=== PATIENT | female | born 1945 | race Caucasian/White ===

== ENCOUNTER 2016-03-18 04:54 | Inpatient (IN) | payer BC, OTHER ==
--- NOTE | 2016-03-18 05:14 | PDOC ---
History of Present Illness - General History Source: Patient - History of Present Illness Initial Comments: 03/18/16 05:30 The patient is a 70 year old female with a significant past medical history of HTN and depression who presents to the Emergency Department with complaints of post surgery pain. 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 She reports experiencing severe abdominal pain, nausea, and vomiting all night. She also reports cold sweats. She denies chest pain, SOB, cough, diarrhea, headache, dizziness. (-)sick contact PSH:right total knee replacement, spleen removal surgery SH:smokes Marijuana occasionally PCP: Dr. Catracho Nichole <Yuliya Shepard - Last Filed: 03/18/16 05:29> <Laureen Jean-Baptiste - Last Filed: 03/19/16 06:19> - General Stated Complaint: POST SURGERY PAIN Time Seen by Provider: 03/18/16 05:14 Past History <Yuliya Shepard - Last Filed: 03/18/16 05:29> - Past Medical History Anemia: No Asthma: No Cancer: No Cardiac Disorders: No CVA: No COPD: No CHF: No Dementia: No Diabetes: No GI Disorders: No Disorders: No HTN: Yes Hypercholesterolemia: No Liver Disease: No Psychiatric Problems: Yes (depression ) Seizures: Yes (no medication) Thyroid Disease: No Lung CA: Yes - Surgical History Abdominal Surgery: No Appendectomy: No Cardiac Surgery: No Cholecystectomy: No Lung Surgery: No Neurologic Surgery: No Orthopedic Surgery: Yes (LEFT TOTAL KNEE REPLACEMENT 2013) - Psycho/Social/Smoking Cessation Hx Anxiety: No Suicidal Ideation: No Smoking Status: No Smoking History: Never smoked (smokes marijuana (2 JOINTS/DAY)) Years of Tobacco Use: 0 Have you smoked in the past 12 months: No Number of Cigarettes Smoked Daily: 0 'Breaking Loose' booklet given: 08/31/13 Hx Alcohol Use: No Drug/Substance Use Hx: Yes (SMOKES 2 JOINTS/DAY) Substance Use Type: Marijuana Hx Substance Use Treatment: No <Laureen Jean-Baptiste - Last Filed: 03/19/16 06:19> - Past Medical History Allergies/Adverse Reactions: Allergies Allergy/AdvReac Type Severity Reaction Status Date / Time No Known Allergies Allergy Verified 03/18/16 05:36 Home Medications: Ambulatory Orders NK [No Known Home Medication] 03/18/16 Review of Systems - Review of Systems Able to Perform ROS?: Yes Comments:: 03/18/16 05:30 GENERAL/CONSTITUTIONAL: Yes: cold sweats No: fever, weakness, loss of appetite. HEAD, EYES, EARS, NOSE AND THROAT: No: change in vision, ear pain, discharge, sore throat, throat swelling. CARDIOVASCULAR: No: chest pain, lightheadedness, palpitations, syncope RESPIRATORY: No: cough, shortness of breath, wheezing, hemoptysis, stridor. GASTROINTESTINAL: Yes: nausea, vomiting, abdominal pain No: diarrhea, rectal bleeding, constipation. GENITOURINARY: No: dysuria, hematuria, frequency, urgency, flank pain. MUSCULOSKELETAL: No: back pain, neck pain, joint pain, muscle swelling or pain SKIN AND BREASTS: No: lesions, pallor, rash or easy bruising. NEUROLOGIC: No: headache, vertigo, paresthesias, weakness ENDOCRINE: No: unexplained weight gain or loss HEMATOLOGIC/LYMPHATIC: No: anemia, easy bleeding, swelling nodes All Other Systems: Reviewed and Negative <Yuliya Shepard - Last Filed: 03/18/16 05:29> *Physical Exam - Physical Exam Comments: 03/18/16 05:36 GENERAL: The patient is in no acute distress. HEAD: Normal with no signs of trauma. EYES: PERRLA, EOMI, sclera anicteric, conjunctiva clear. ENT: Ears normal, nares patent, oropharynx clear without exudates. Moist mucous membranes. NECK: Normal range of motion, supple without lymphadenopathy, JVD, or masses. LUNGS: Breath sounds equal, clear to auscultation bilaterally. No wheezes, and no crackles. HEART:Regular rate and rhythm, normal S1 and S2 without murmur, rub or gallop. ABDOMEN: +mid abdominal surgical scar. Soft, nontender, normoactive bowel sounds. No guarding, no rebound. EXTREMITIES: Normal range of motion, no edema. No clubbing or cyanosis. No erythema, or tenderness. NEUROLOGICAL: Cranial nerves II through XII grossly intact. Normal speech. No focal neurological deficits. MUSCULOSKELETAL: Back non-tender to palpation, no CVA tenderness SKIN: Warm, Dry, normal turgor, no rashes. <Yuliya Shepard - Last Filed: 03/18/16 05:29> ED Treatment Course - LABORATORY CBC & Chemistry Diagram: 03/18/16 05:30 03/18/16 05:30 <Laureen Jean-Baptiste - Last Filed: 03/19/16 06:19> Medical Decision Making - Medical Decision Making 03/18/16 06:53 Pt comes with intractable vomiting all night. She had a splenectomy on Jan 18, 2016. Since that time, she healed up and she has had no issues. She has no other PMHx. She is coughing, and states that she doesn;t smoke cigarettes, only pot. SHe has no dysuria, flank pain, fever. She only has vomiting. No history of food poisoning. SHe has a WBC count of 15 with a right shift. SHe may have a viral gastroenteritis, or she may have an acute obstruction. CT pending. SHe will be signed out to the day ER doctor, who will admit her to the hospital. <Laureen Jean-Baptiste - Last Filed: 03/19/16 06:19> *DC/Admit/Observation/Transfer - Attestations Scribe Attestion: 03/18/16 05:37 Documentation prepared by Yuliya Shepard, acting as medical assisting program director for Laureen Jean-Baptiste MD. <Yuliya Shepard - Last Filed: 03/18/16 05:29> <Laureen Jean-Baptiste - Last Filed: 03/19/16 06:19> Diagnosis at time of Disposition: Small bowel obstruction - Discharge Dispostion Condition at time of disposition: Stable - Referrals
[2016-03-18] MEDS ORDERED: ONDANSETRON 4 MG/2 ML VIAL IVPB ONE (05:26)
[2016-03-18] MEDS ORDERED: SODIUM CHLORIDE 0.9% 500 ML INFUS.BAG IV ONE (05:26)
[2016-03-18] MEDS ORDERED: FAMOTIDINE 20 MG/50 ML IVPB 50 ML IVPB ONE ×2 (05:26→05:31)
[2016-03-18] MEDS ORDERED: ONDANSETRON 4 MG/2 ML VIAL ONE (05:31)
[2016-03-18 05:40] VITALS: BMI 21.9
[2016-03-18 05:41] LABS: MCH 27.3 pg (25.7-33.7); MCHC 31.8 g/dl (32.0-36.0); MEAN CELL VOLUME 85.7 fl (80-96); PLATELET COUNT 528 K/MM3 (134-434); RDW 17.2 % (11.6-15.6); WHITE BLOOD COUNT 15.1 K/mm3 (4.0-10.0)
[2016-03-18 06:10] LABS: ALBUMIN 4.5 g/dl (3.4-5.0); AMYLASE 66 U/L (25-115); ANION GAP 12 (8-16); BILIRUBIN,TOTAL 0.7 mg/dL (0.2-1.0); CALCIUM 10.4 mg/dL (8.5-10.1); CO2 24 mmol/L (21-32); CREATININE 0.9 mg/dL (0.55-1.02); GLUCOSE,RANDOM 172 mg/dL (74-106); SGPT/ALT 22 U/L (12-78); TOT PROT 8.3 g/dl (6.4-8.2)
[2016-03-18 06:11] LABS: ALK PHOS 85 U/L (45-117)
[2016-03-18 06:15] LABS: SGOT/AST 31 U/L (15-37)
--- NOTE | 2016-03-18 07:13 | PDOC ---
*Physical Exam - Vital Signs Last Vital Signs Temp Pulse Resp BP Pulse Ox 97.6 F 96 H 18 125/90 100 03/18/16 05:37 03/18/16 05:37 03/18/16 05:37 03/18/16 05:37 03/18/16 05:37 ED Treatment Course - LABORATORY CBC & Chemistry Diagram: 03/18/16 05:30 03/18/16 05:30 - ADDITIONAL ORDERS Additional order review: Laboratory Results 03/18/16 05:30 Sodium 138 Potassium 4.7 Chloride 102 Carbon Dioxide 24 Anion Gap 12 BUN 16 D Creatinine 0.9 D Creat Clearance w eGFR > 60 Random Glucose 172 H D Calcium 10.4 H Total Bilirubin 0.7 AST 31 ALT 22 D Alkaline Phosphatase 85 D Total Protein 8.3 H D Albumin 4.5 D Total Amylase 66 Lipase 127 03/18/16 05:30 RBC 5.37 H D MCV 85.7 MCHC 31.8 L RDW 17.2 H D MPV 8.0 D Neutrophils % Y Lymphocytes % Y - Medications Given in the ED: ED Medications Discontinued Medications Generic Name Dose Route Start Last Admin Trade Name Freq PRN Reason Stop Dose Admin Famotidine/Sodium Chloride 50 mls @ 100 mls/hr 03/18/16 05:26 03/18/16 05:35 Pepcid 20 Mg Premixed Ivpb - IVPB 03/18/16 05:55 100 mls/hr ONCE ONE Administration Ondansetron HCl 4 mg 03/18/16 05:26 03/18/16 05:35 Zofran Injection IVPB 03/18/16 05:27 4 mg ONCE ONE Administration Sodium Chloride 1,000 ml 03/18/16 05:26 03/18/16 05:35 Normal Saline - IV 03/18/16 05:27 1,000 ml ONCE ONE Administration Medical Decision Making - Medical Decision Making 03/18/16 07:12 The pt was signed out to me from dr. Jean-Baptiste at 7am. 70y F hx of splenic rupture s/p splenectomy in december, presents with vomiting today. The patient endorses some abd pain and vomiting w/o fever/chills, diarrhea. The pts labs were obtained that revealed a leukocytosis, but hbg also elevated, ?hemoconcentration. The patient is awaiting CT abdomen with contrast later today. 03/18/16 10:[address] c/w high grade SBO will admit the pt with surgical consultation NPO for now the pt appears well, abd soft nontender. no vomting since arrival will hold NG tube unless pt is vomiting prior fluid collections hasve resolved. 03/18/16 10:59 The case was discussed with Dr. De La Rosa agreed with admission for further mangaement Stable for admission to [facility] Case discussed in detail with admitting physician including history, physical exam and ancillary studies. Admitting physician has assumed care for the patient, will follow all pending diagnostics and will complete the evaluation and treatment. *DC/Admit/Observation/Transfer Diagnosis at time of Disposition: Small bowel obstruction - Discharge Dispostion Condition at time of disposition: Stable Admit: Yes - Referrals Referrals: Catracho Nichole MD [Primary Care Provider] - - Patient Instructions - Post Discharge Activity
[2016-03-18 07:42] LABS: PLATELET COMMENT2 NO CLOTTING DETECTED; PLATELET COMMENT3 FEW LARGE PLTS; PLATELET ESTIMATE INCREASED (NORMAL)
[2016-03-18] MEDS ORDERED: SODIUM CHLORIDE 1,000 ML IV SCH (11:15)
--- NOTE | 2016-03-18 11:26 | HP ---
PCP: Catracho Nichole CHIEF COMPLAINT: Abdominal pain HISTORY OF PRESENT ILLNESS: This is a 70-year-old woman who comes to the ER today complaining of abdominal pain. She has been having intermittent abdominal pain for about a week. Pain has been more severe for the last 2 days. She ate Lebanese food on the night of 03/16 and afterwards she began vomiting and the pain worsened. She has a history of splenic artery aneurysm bleed and underwent embolization by IR on 01/17/16. She then had an exploratory laparotomy and was found to have a ruptured spleen and underwent splenectomy on 01/18/16. Her post- op course was complicated by pneumonia, ileus, DIRK and demand ischemia. She was discharged on 02/04/16. She says she saw Dr. Leal last week. She denies fever, chills, hematemesis, melena, rectal bleeding. Her last bowel movement was yesterday. PAST MEDICAL HISTORY Depression Seizures Hypotension PAST SURGICAL HISTORY Bilateral total knee replacements Tubal ligation Splenectomy Allergies No Known Allergies Allergy (Verified 03/18/16 05:36) HOME MEDICATIONS 3 Medication Instructions Recorded NK [No Known Home Medication] 03/18/16 Social History: Smoking: Never smoked Alcohol: None Drugs: Marijuana Recent Travel: No Family History: Non-contributory REVIEW OF SYSTEMS CONSTITUTIONAL: Absent: fever, chills, diaphoresis, generalized weakness, malaise, loss of appetite, weight change HEENT: Absent: rhinorrhea, nasal congestion, throat pain, throat swelling, difficulty swallowing, mouth swelling, ear pain, eye pain, visual changes CARDIOVASCULAR: Absent: chest pain, syncope, palpitations, lightheadedness, peripheral edema RESPIRATORY: Absent: cough, shortness of breath, dyspnea with exertion, orthopnea, wheezing, stridor, hemoptysis GASTROINTESTINAL: Present: abdominal pain, abdominal distension, nausea, vomiting. Absent: diarrhea, constipation, melena, hematochezia GENITOURINARY: Absent: dysuria, frequency, urgency, hesitancy, hematuria, flank pain MUSCULOSKELETAL: Absent: myalgia, arthralgia, joint swelling, back pain, neck pain SKIN: Absent: rash, itching, pallor HEMATOLOGIC/IMMUNOLOGIC: Absent: easy bleeding, easy bruising, lymphadenopathy, frequent infections ENDOCRINE: Absent: unexplained weight gain, unexplained weight loss, heat intolerance, cold intolerance NEUROLOGIC: Absent: headache, focal weakness, paresthesias, dizziness, unsteady gait, seizure, mental status changes, bladder or bowel incontinence PSYCHIATRIC: Absent: anxiety, depression, suicidal or homicidal ideation, hallucinations. PHYSICAL EXAMINATION Vital Signs Period Temp Pulse Resp BP Sys/Truong Pulse Ox Last 24 Hr 97.6 F 96 18 125/90 100 GENERAL: Awake, alert, and fully oriented, in no acute distress. HEAD: Normal with no signs of trauma. EYES: Pupils equal, round and reactive to light, extraocular movements intact, sclerae anicteric, conjunctivae clear. EARS, NOSE, THROAT: Ears normal, nares patent, oropharynx clear without exudates. Moist mucous membranes. NECK: Normal range of motion, supple without lymphadenopathy, JVD, or masses. LUNGS: Breath sounds equal, clear to auscultation bilaterally. No wheezes, and no crackles. No accessory muscle use. HEART: Regular rate and rhythm, normal S1 and S2 without murmur, rub or gallop. ABDOMEN: Soft, mild diffuse tenderness, mild distension, hypoactive bowel sounds , no guarding, no rebound, no masses. No hepatomegaly. MUSCULOSKELETAL: Normal range of motion at all joints. No bony deformities or tenderness. No CVA tenderness. UPPER EXTREMITIES: 2+ pulses, warm, well-perfused. No cyanosis. No clubbing. Cap refill <2 seconds. No peripheral edema. LOWER EXTREMITIES: 2+ pulses, warm, well-perfused. No calf tenderness. No peripheral edema. NEUROLOGICAL: Cranial nerves II-XII intact. Normal speech. Gait not observed. PSYCHIATRIC: Cooperative. Good eye contact. Appropriate mood and affect. SKIN: Warm, dry, normal turgor, no rashes or lesions noted. Laboratory Results - last 24 hr 03/18/16 03/18/16 05:30 05:30 WBC 15.1 H D RBC 5.37 H D Hgb 14.6 D Hct 46.0 H D MCV 85.7 MCHC 31.8 L RDW 17.2 H D Plt Count 528 H D MPV 8.0 D Neutrophils % 65.0 Lymphocytes % 22.0 D Monocytes % 8.0 Band Neutrophils 5.0 D Platelet Estimate Increased Platelet Comment No clotting detected Sodium 138 Potassium 4.7 Chloride 102 Carbon Dioxide 24 Anion Gap 12 BUN 16 D Creatinine 0.9 D Creat Clearance w eGFR > 60 Random Glucose 172 H D Calcium 10.4 H Total Bilirubin 0.7 AST 31 ALT 22 D Alkaline Phosphatase 85 D Total Protein 8.3 H D Albumin 4.5 D Total Amylase 66 Lipase 127 Abdomen flat/upright: Distended small bowel with air-fluid levels. CT abdomen/pelvis: High grade, partial SBO. ASSESSMENT/PLAN: This is a 70-year-old woman with a history of depression, seizures, ruptured spleen and splenectomy who presented to the ER today with abdominal pain x 1 week, worse and associated with nausea and vomiting for the last 2 days. She was found to have WBC 15.1, platelets 528. Abdominal x-rays and CT are consistent with partial SBO. She is being admitted now for treatment of an emergent condition. 1. Partial small bowel obstruction - Currently no nausea or vomiting - Morphine as needed for pain - Zofran as needed for nausea - IV fluid - Surgery consult 2. Leukocytosis - Likely reactive - Follow WBC, temp 3. Thrombocytosis - Secondary to splenectomy Problem List - Problem (1) Partial small bowel obstruction Code(s): K56.69 - OTHER INTESTINAL OBSTRUCTION Visit type - Emergency Visit Emergency Visit: Yes ED Registration Date: 03/18/16 Care time: The patient presented to the Emergency Department on the above date and was hospitalized for further evaluation of their emergent condition. - New Patient This patient is new to me today: Yes Date on this admission: 03/18/16 - Critical Care Critical Care patient: No
[2016-03-18] MEDS ORDERED: ONDANSETRON 4 MG/2 ML VIAL IVPB PRN (11:33)
[2016-03-18] MEDS: SODIUM CHLORIDE 1,000 ML IV SCH (11:45)
--- NOTE | 2016-03-18 14:16 | CONSULT ---
Consult Consult Specialty:: Surgery Reason for Consultation:: SBO - History of Present Illness Chief Complaint: Abdominal pain History of Present Illness: The patient is a 70 year old female with a significant past medical history of HTN and depression who presents to the Emergency Department with complaints of post surgery pain. 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 She reports experiencing severe abdominal pain, nausea, and vomiting all night. She also reports cold sweats. She denies chest pain, SOB, cough, diarrhea, headache, dizziness. (-)sick contact PSH:right total knee replacement, spleen removal surgery SH:smokes Marijuana occasionally - History Source History Provided By: Patient - Past Medical History Gastrointestinal: Yes: Other (Ruptured spleen) Psych: Yes: Anxiety Musculoskeletal: Yes: Other (knee pain, post TKR) - Past Surgical History Past Surgical History: Yes: Joint Replacement, Splenectomy (Grade 4 splenic injury) - Alcohol/Substance Use Hx Alcohol Use: No History of Substance Use: reports: Marijuana - Smoking History Smoking history: Never smoked (smokes marijuana (2 JOINTS/DAY)) Have you smoked in the past 12 months: No Aproximately how many cigarettes per day: 0 Home Medications - Allergies Allergies/Adverse Reactions: Allergies Allergy/AdvReac Type Severity Reaction Status Date / Time No Known Allergies Allergy Verified 03/18/16 05:36 - Home Medications Home Medications: Ambulatory Orders NK [No Known Home Medication] 03/18/16 Physical Exam Vital Signs: Vital Signs Temperature 97.6 F 03/18/16 05:37 Pulse Rate 90 03/18/16 13:20 Respiratory Rate 18 03/18/16 13:20 Blood Pressure 153/77 03/18/16 13:20 O2 Sat by Pulse Oximetry (%) 97 03/18/16 13:20 Labs: Laboratory Last Values WBC 15.1 K/mm3 (4.0-10.0) H D 03/18/16 05:30 RBC 5.37 M/mm3 (3.60-5.2) H D 03/18/16 05:30 Hgb 14.6 GM/dL (10.7-15.3) D 03/18/16 05:30 Hct 46.0 % (32.4-45.2) H D 03/18/16 05:30 MCV 85.7 fl (80-96) 03/18/16 05:30 MCHC 31.8 g/dl (32.0-36.0) L 03/18/16 05:30 RDW 17.2 % (11.6-15.6) H D 03/18/16 05:30 Plt Count 528 K/MM3 (134-434) H D 03/18/16 05:30 MPV 8.0 fl (7.5-11.1) D 03/18/16 05:30 Neutrophils % 65.0 % (42.8-82.8) 03/18/16 05:30 Lymphocytes % 22.0 % (8-40) D 03/18/16 05:30 Monocytes % 8.0 % (3.8-10.2) 03/18/16 05:30 Band Neutrophils 5.0 % (0-10) D 03/18/16 05:30 Platelet Estimate Increased (NORMAL) 03/18/16 05:30 Platelet Comment No clumping noted 03/18/16 05:30 Platelet Comment No clotting detected 03/18/16 05:30 Sodium 138 mmol/L (136-145) 03/18/16 05:30 Potassium 4.7 mmol/L (3.5-5.1) 03/18/16 05:30 Chloride 102 mmol/L (98-107) 03/18/16 05:30 Carbon Dioxide 24 mmol/L (21-32) 03/18/16 05:30 Anion Gap 12 (8-16) 03/18/16 05:30 BUN 16 mg/dL (7-18) D 03/18/16 05:30 Creatinine 0.9 mg/dL (0.55-1.02) D 03/18/16 05:30 Creat Clearance w eGFR > 60 (>60) 03/18/16 05:30 Random Glucose 172 mg/dL (74-106) H D 03/18/16 05:30 Calcium 10.4 mg/dL (8.5-10.1) H 03/18/16 05:30 Total Bilirubin 0.7 mg/dL (0.2-1.0) 03/18/16 05:30 AST 31 U/L (15-37) 03/18/16 05:30 ALT 22 U/L (12-78) D 03/18/16 05:30 Alkaline Phosphatase 85 U/L (45-117) D 03/18/16 05:30 Total Protein 8.3 g/dl (6.4-8.2) H D 03/18/16 05:30 Albumin 4.5 g/dl (3.4-5.0) D 03/18/16 05:30 Total Amylase 66 U/L (25-115) 03/18/16 05:30 Lipase 127 U/L (73-393) 03/18/16 05:30 Imaging - Results X-ray: Report Reviewed, Image Reviewed Cat Scan: Report Reviewed, Image Reviewed (partial SBO) Assessment/Plan S/P exploratory laparotomy, splenectomy with post-op partial small bowel obstruction Recommend: Admit for NGT decompression, bowel rest, IVF hydration, and fluid and electrolyte monitoring serial abdominal exams, F/U FUA in am
[2016-03-18] MEDS: morphine CARPU-JECT 2 MG/1 ML DISP.SYRIN IVPUSH PRN (15:28)
[2016-03-18] MEDS ORDERED: morphine CARPU-JECT 2 MG/1 ML DISP.SYRIN ONE (15:31)
[2016-03-19 07:36] LABS: BASOPHIL 1.9 % (0-2.0); EOSINOPHIL 3.7 % (0-4.5); MCH 27.5 pg (25.7-33.7); MCHC 32.2 g/dl (32.0-36.0); MEAN CELL VOLUME 85.3 fl (80-96); MEAN PLT VOLUME 8.1 fl (7.5-11.1); NEUTROPHILS 49.3 % (42.8-82.8); PLATELET COUNT 395 K/MM3 (134-434); RDW 16.4 % (11.6-15.6); WHITE BLOOD COUNT 8.2 K/mm3 (4.0-10.0)
[2016-03-19 08:22] LABS: CALCIUM 8.9 mg/dL (8.5-10.1); CREATININE 0.3 mg/dL (0.55-1.02)
--- NOTE | 2016-03-19 09:28 | PN ---
Addendum entered and electronically signed by Win Carolina PA 03/19/16 13:27: AXR 03/19 Shows improvement in SBO compared to previous film. NGT is now in the stomach. Contrast is now seen in colon Addendum entered and electronically signed by Win Carolina PA 03/19/16 10:33: f/u AXR Original Note: Progress Note (short form) - Note Progress Note: 70 year old female well known to the general surgery service. She is s/p splenectomy 01/20/16 (shattered spleen). Now presents to the ED w/ c/o abdominal pain post surgery. Having bouts of n/v and feeling chills with night sweats. Never took her temperature but reports feeling "hot" at times. Prior to discharge, she received her pneumpcoccal vaccine on POD #15. Denies sick contacts. Denies CP, SOB, cough, diarrhea, headache, dizziness. Denies flatus or bm. *smokes marijuana daily. Last Vital Signs Temp Pulse Resp BP Pulse Ox 98.2 F 79 18 139/79 98 03/19/16 05:34 03/19/16 05:34 03/19/16 05:34 03/19/16 05:34 03/18/16 21:00 CBC, BMP 03/19/16 06:20 03/19/16 06:20 CT: High grade SBO CXR: ngt in distal esophagus. recommend advancing 8cm. PE General: alert. nad Nose: ngt advanced ~8 cm abd: soft. mildly distended. midline incision healed well. no bowel sounds. LE: soft. nt b/l Problem List - Problems (1) Small bowel obstruction Assessment/Plan: NPO/IVF GI/DVT PPX CBC/BMP NGT to LWCS Serial abd exams Surgery team following Code(s): K56.69 - OTHER INTESTINAL OBSTRUCTION
[2016-03-19] MEDS: morphine CARPU-JECT 2 MG/1 ML DISP.SYRIN IVPUSH PRN (12:05)
--- NOTE | 2016-03-19 12:17 | PN ---
Physical Exam: SUBJECTIVE: Patient seen and examined. She wants the NGT out, its painful. Denies nausea, vomiting, abd pain. Events: ~300CC green bilious output overnight OBJECTIVE: Vital Signs Period Temp Pulse Resp BP Sys/Truong Pulse Ox Last 24 Hr 97.5 F-98.2 F 67-95 18-18 129-162/73-98 97-98 Pe Neuro: alert, awake, cn 2-12 intact HEENT: NGT with green bilious fluid Pulm: CTAB CV: s1 s2 rrr no mrg Abd: midline scar- healed, mild lower abd tenderness to palpation, soft +BS, NGT suction sounds Ext: warm, no le edema Laboratory Results - last 24 hr 03/19/16 03/19/16 06:20 06:20 WBC 8.2 D RBC 4.07 D Hgb 11.2 D Hct 34.7 D MCV 85.3 MCHC 32.2 RDW 16.4 H Plt Count 395 D MPV 8.1 Neutrophils % 49.3 D Lymphocytes % 31.3 D Monocytes % 13.8 H Eosinophils % 3.7 Basophils % 1.9 Sodium 142 Potassium 3.6 D Chloride 105 Carbon Dioxide 24 Anion Gap 13 BUN 14 Creatinine 0.3 L D Random Glucose 88 D Calcium 8.9 Active Medications Generic Name Dose Route Start Last Admin Trade Name Freq PRN Reason Stop Dose Admin Sodium Chloride 1,000 mls @ 100 mls/hr 03/18/16 11:45 03/18/16 11:45 Normal Saline - IV 100 mls/hr ASDIR LISHA Administration Morphine Sulfate 1 mg 03/18/16 11:33 03/19/16 12:05 Morphine Injection - IVPUSH 1 mg Q4H PRN Administration PAIN Ondansetron HCl 4 mg 03/18/16 11:33 Zofran Injection IVPB Q4H PRN NAUSEA Imaging: CT abdomen/pelvis: High grade, partial SBO. Assessment: 70 year old female with pmhx depression, seizures, ruptured spleen and splenectomy admitted with worsening abdominal pain x1week, with associated with nausea and vomiting for the last 2 days, found to have SBO Plan: 1. Partial small bowel obstruction - Continue NGT to low wall suction, NGT advanced per surgery - Abd XR shows improvement today - Serial abd xrays - Surgery following 2. Leukocytosis - Resolved, likely reactive 3. 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 FEN - NPO, ice chips Visit type - Emergency Visit Emergency Visit: Yes ED Registration Date: 03/18/16 Care time: The patient presented to the Emergency Department on the above date and was hospitalized for further evaluation of their emergent condition. - New Patient This patient is new to me today: Yes Date on this admission: 03/19/16 - Critical Care Critical Care patient: No
[2016-03-19] MEDS ORDERED: TETRACAINE/BENZOCAINE/BUTAMBEN 20 GM SPR TP ONE (13:00)
[2016-03-19] MEDS: SODIUM CHLORIDE 1,000 ML IV SCH (17:48)
[2016-03-19] MEDS: TETRACAINE/BENZOCAINE/BUTAMBEN 20 GM SPR TP PRN (22:46)
[2016-03-20] MEDS: SODIUM CHLORIDE 1,000 ML IV SCH ×2 (03:15→13:40)
[2016-03-20 07:44] LABS: BASOPHIL 1.6 % (0-2.0); EOSINOPHIL 1.9 % (0-4.5); MCHC 32.7 g/dl (32.0-36.0); MEAN CELL VOLUME 85.5 fl (80-96); MEAN PLT VOLUME 8.8 fl (7.5-11.1); NEUTROPHILS 56.6 % (42.8-82.8); PLATELET COUNT 389 K/MM3 (134-434); RDW 16.5 % (11.6-15.6); WHITE BLOOD COUNT 7.7 K/mm3 (4.0-10.0)
[2016-03-20 09:43] LABS: CALCIUM 8.8 mg/dL (8.5-10.1); CREATININE 0.3 mg/dL (0.55-1.02)
--- NOTE | 2016-03-20 10:52 | PN ---
Progress Note (short form) - Note Progress Note: Resting comfortably without complaint. No more abd pain. Voiding spontaneously. States she thinks she is passing a little flatus. Per RN notes, patient drained 2100cc from 6pm last night till 05:30 this morning from her NGT Denies n/v/f/c/d, bm, CP or SOB Last Vital Signs Temp Pulse Resp BP Pulse Ox 98.4 F 69 18 133/55 94 L 03/20/16 10:10 03/20/16 10:10 03/20/16 10:10 03/20/16 10:10 03/19/16 21:00 CBC, BMP 03/20/16 07:00 03/20/16 07:00 AXR 03/20: oral contrast seen in colon from previous exam. Air-filled, non- distended sb loops. NG tube in good position. PE General: alert. nad. Abd: midline incision/scar intact and healed well. soft throughout. Bowel sounds absent. Le: soft b/l <Win Carolina P - Last Filed: 03/20/16 10:53> - Note Progress Note: Surgery Attending Agree with assessment and plan of management of ROSEY Carolina with the following modification: clamp NGT and check residuals q 4 hours. <Lionel Leal - Last Filed: 03/20/16 13:25> Problem List - Problems (1) Small bowel obstruction Assessment/Plan: Cont NGT to LWCS Aggressive mobilization GI / DVT ppx Monitor NGT output and record hourly Cont conservative management at this time. Code(s): K56.69 - OTHER INTESTINAL OBSTRUCTION <Win Carolina P - Last Filed: 03/20/16 10:53>
--- NOTE | 2016-03-20 15:35 | PN ---
Physical Exam: SUBJECTIVE: Patient seen and examined. She has less tenderness. She states she has passed small amounts of flatulence Events: Per RN notes: 2100cc outpt overnight OBJECTIVE: Vital Signs Period Temp Pulse Resp BP Sys/Truong Pulse Ox Last 24 Hr 97.1 F-98.7 F 69-78 18-18 130-147/55-77 94 Pe Neuro: alert, awake, cn 2-12 intact HEENT: NGT with clear light green bilious fluid Pulm: CTAB CV: s1 s2 rrr no mrg Abd: midline scar- healed, mild lower abd tenderness- resolved, soft +BS, NGT suction sounds Ext: warm, no le edema Laboratory Results - last 24 hr 03/20/16 03/20/16 07:00 07:00 WBC 7.7 RBC 4.15 Hgb 11.6 Hct 35.5 MCV 85.5 MCHC 32.7 RDW 16.5 H Plt Count 389 MPV 8.8 Neutrophils % 56.6 Lymphocytes % 28.0 Monocytes % 11.9 H Eosinophils % 1.9 Basophils % 1.6 Sodium 141 Potassium 3.5 Chloride 103 Carbon Dioxide 24 Anion Gap 14 BUN 11 D Creatinine 0.3 L Random Glucose 56 L D Calcium 8.8 Active Medications Generic Name Dose Route Start Last Admin Trade Name Freq PRN Reason Stop Dose Admin Benzocaine/Butamben/Tetracaine HCl 1 spray 03/19/16 18:55 03/19/16 22:46 Exactacain Collins - TP 1 spray Q4H PRN Administration THROAT PAIN Diphenhydramine HCl 25 mg 03/19/16 18:55 03/19/16 22:51 Benadryl Injection - IVPB 25 mg HS PRN Administration INSOMNIA Sodium Chloride 1,000 mls @ 100 mls/hr 03/18/16 11:45 03/20/16 03:15 Normal Saline - IV 100 mls/hr ASDIR LISHA Administration Morphine Sulfate 1 mg 03/18/16 11:33 03/19/16 12:05 Morphine Injection - IVPUSH 1 mg Q4H PRN Administration PAIN Ondansetron HCl 4 mg 03/18/16 11:33 Zofran Injection IVPB Q4H PRN NAUSEA Imaging: CT abdomen/pelvis: High grade, partial SBO Assessment: 70 year old female with pmhx depression, seizures, ruptured spleen and splenectomy admitted with worsening abdominal pain x1week, with associated with nausea and vomiting for the last 2 days, found to have SBO Plan: 1. Partial small bowel obstruction - Abd xray 03/20: oral contrast seen in colon from previous exam. Air-filled, non -distended sb loops. NG tube in good position. - Clamp NGT and check residuals q4hrs - Encourage ambulation in the halls today - Serial abd xrays - Surgery seeing 2. Leukocytosis - Resolved, likely reactive 3. 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 FEN - NPO, ice chips Visit type - Emergency Visit Emergency Visit: Yes ED Registration Date: 03/18/16 Care time: The patient presented to the Emergency Department on the above date and was hospitalized for further evaluation of their emergent condition. - New Patient This patient is new to me today: No - Critical Care Critical Care patient: No
[2016-03-20] MEDS: TETRACAINE/BENZOCAINE/BUTAMBEN 20 GM SPR TP PRN (21:55)
[2016-03-21] MEDS: SODIUM CHLORIDE 1,000 ML IV SCH (00:50)
[2016-03-21] MEDS: morphine CARPU-JECT 2 MG/1 ML DISP.SYRIN IVPUSH PRN (01:08)
--- NOTE | 2016-03-21 07:30 | PN ---
Addendum entered and electronically signed by Shelley Messina PA 03/21/16 09:52 : Follow-up XR- no signs of dilation or obstruction Original Note: Progress Note (short form) - Note Progress Note: 70 y/o female admitted with high grade sbo. Yesterday, her ngt was clamped and residuals checked q4h. Low output recorded with last one 0mL. Per RN, the patient had 3 large soft bms. She was started on a liquid diet which she is tolerating. Denies n/v/f/c, CP, SOB or abd pain. Last Vital Signs Temp Pulse Resp BP Pulse Ox 97.8 F 65 20 148/74 97 03/21/16 05:25 03/21/16 05:25 03/21/16 05:25 03/21/16 05:25 03/20/16 20:29 PE General: alert. nad. Abd: soft. nt. nd. Le: soft b/l <Win Carolina P - Last Filed: 03/21/16 07:30> - Note Progress Note: Partial SBO resolved. Agree with ROSEY Carolina's assessment and recommendations. <Lionel Leal - Last Filed: 03/21/16 10:56> Problem List - Problems (1) Small bowel obstruction Assessment/Plan: SBO resolved with conservative management. NGT d/c'd on rounds. Advance diet to regular. If she tolerates, she can go home today. Code(s): K56.69 - OTHER INTESTINAL OBSTRUCTION <Win Carolina - Last Filed: 03/21/16 07:30>
[2016-03-21 08:58] LABS: CALCIUM 8.4 mg/dL (8.5-10.1); CREATININE 0.3 mg/dL (0.55-1.02)
[2016-03-21] MEDS ORDERED: POTASSIUM CHLORIDE 40 MEQ/30 ML UNIT DOSE CUP PO ONE (09:30)
--- NOTE | 2016-03-21 17:49 | DS ---
Physical Exam: SUBJECTIVE: Patient seen and examined. Tolerating meals. She was nauseated this afternoon and vomited. Now feeling better OBJECTIVE: Vital Signs Period Temp Pulse Resp BP Sys/Truong Pulse Ox Last 24 Hr 97.7 F-98.7 F 65-76 20-20 128-148/74-88 97 Pe Neuro: alert, awake, cn 2-12 intact Pulm: CTAB CV: s1 s2 rrr no mrg Abd: midline scar- healed. 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 She had having intermittent abdominal pain for about a week. Pain has been more severe for the 2 days. She ate [place] food on the night of 03/16 and afterwards she began vomiting and the pain worsened. She has a history of splenic artery aneurysm bleed and underwent embolization by IR on 01/17/16. She then had an exploratory laparotomy and was found to have a ruptured spleen and underwent splenectomy on 01/18/16. Her post-op course was complicated by pneumonia, ileus, DIRK and demand ischemia. She was discharged on 02/04/16. She says she saw Dr. Leal last week. Her last bowel movement was yesterday. Found to have an SBO Imaging: CT abdomen/pelvis: High grade, partial SBO Subsequent Hospital Course/Progress Note/Discharge Summary by a/p: Assessment: 70 year old female with pmhx depression, seizures, ruptured spleen and splenectomy admitted with worsening abdominal pain x1week, with associated with nausea and vomiting for the last 2 days, found to have SBO Plan: 1. Partial small bowel obstruction - Resolved on 1.25 - NGT inserted, NPO x 3 days - Clammed with min residual, with large bm on 03/20 - Tolerated diet on discharge 2. Leukocytosis - Resolved, likely reactive 3. 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 Followup with your general doctor in 1 week Resume normal everyday activity Diet There are no dietary restrictions. Eat healthy, high-fiber foods. Drink 6 to 8 glasses of liquid each day. This will assist in keeping your bowels are regular. Referrals: Catracho Nichole MD [Primary Care Provider] - Disposition: HOME - Home Medications Comprehensive Discharge Medication List: Ambulatory Orders NK [No Known Home Medication] 03/18/16 This patient is new to me today: No Emergency Visit: Yes ED Registration Date: 03/18/16 Care time: The patient presented to the Emergency Department on the above date and was hospitalized for further evaluation of their emergent condition. Critical Care patient: No - Discharge Referral Referred to [facility] No
[2016-03-21 18:02] VITALS: BP 124/66; PULSE 84; TEMP 98.1
== END 2016-03-21 18:55 | disposition home or self-care (01) | DRG 390 ==
LOC: JER 04:54 → JERBED 11:18 → J7W 19:12
PROVIDERS: ADMIT Internal Medicine; ATTEND Nurse Practitioner Acute Care
PROC: 0D9670Z Drainage of Stomach with Drainage Device, Via Natural or Artificial Opening (ICD-10-PCS; principal; 2016-03-19)
DX: K56.69 Other intestinal obstruction (principal); I10 Essential (primary) hypertension; F32.9 Major depressive disorder, single episode, unspecified; D47.3 Essential (hemorrhagic) thrombocythemia; F12.10 Cannabis abuse, uncomplicated; D72.829 Elevated white blood cell count, unspecified
CPT/HCPCS: 36415; 71010-TC; 74000-TC; 74020-TC; 74176-TC; 80048; 80053; 82150; 83690; 85025; 99284-25

== ENCOUNTER 2017-03-17 20:53 | Observation (INO) | payer BC, OTHER ==
--- NOTE | 2017-03-17 21:24 | PDOC ---
History of Present Illness - General Stated Complaint: DIFFICULTY BRETAHING Time Seen by Provider: 03/17/17 21:03 Past History - Past Medical History Allergies/Adverse Reactions: Allergies Allergy/AdvReac Type Severity Reaction Status Date / Time No Known Allergies Allergy Verified 03/18/16 05:36 Home Medications: Ambulatory Orders Sertraline HCl [Zoloft -] 100 mg PO DAILY 03/21/16 Anemia: No Asthma: No Cancer: No Cardiac Disorders: No CVA: No COPD: No CHF: No Dementia: No Diabetes: No GI Disorders: No Disorders: No HTN: Yes Hypercholesterolemia: No Liver Disease: No Psychiatric Problems: Yes (depression ) Seizures: Yes (no medication) Thyroid Disease: No Lung CA: Yes - Surgical History Abdominal Surgery: No Appendectomy: No Cardiac Surgery: No Cholecystectomy: No Lung Surgery: No Neurologic Surgery: No Orthopedic Surgery: Yes (LEFT TOTAL KNEE REPLACEMENT 2013) - Suicide/Smoking/Psychosocial Hx Smoking Status: No Smoking History: Never smoked (smokes marijuana (2 JOINTS/DAY)) Years of Tobacco Use: 0 Have you smoked in the past 12 months: No Number of Cigarettes Smoked Daily: 0 'Breaking Loose' booklet given: 08/31/13 Hx Alcohol Use: No Drug/Substance Use Hx: Yes (SMOKES 2 JOINTS/DAY) Substance Use Type: Marijuana Hx Substance Use Treatment: No *DC/Admit/Observation/Transfer - Referrals Referrals: Catracho Nichole MD [Primary Care Provider] - - Patient Instructions - Post Discharge Activity
[2017-03-17] MEDS ORDERED: SODIUM CHLORIDE 1,000 ML IV STA (21:25)
--- NOTE | 2017-03-17 21:25 | PDOC ---
History of Present Illness - General Stated Complaint: DIFFICULTY BRETAHING Time Seen by Provider: 03/17/17 21:03 History Source: Patient Exam Limitations: No Limitations - History of Present Illness Initial Comments: 03/17/17 21:33 This is a 71-year-old woman with past medical history of depression, seizures, SBO, anemia, splenectomy who presents to the emergency department today after she "passed out" for approximately 20 seconds while brushing her teeth today. Patient states she was in her bathroom performing her usual nightly hygiene when she began to feel dizzy and the next thing she remembers, she was on the floor. witnessed the event and denies any shaking or seizure-like activity. Patient described dizziness as lightheadedness. No association with motion reported. Prior to this episode, patient has been experiencing 1 week of productive cough with yellow sputum, sore throat, weakness. Patient was evaluated by her primary doctor who prescribed her a Z-Baldev with minimal relief of symptoms. Of note, patient smoked her usual daily THC at 3 PM. Patient does report some diffuse chest pain which worsens with deep breathing and coughing. She denies fevers, chills, headaches, dizziness, shortness of breath, abdominal pain, nausea, vomiting, diarrhea. PMD: Ro PMH: Seizures, SBO, depression, anemia PSH: Splenectomy status post rupture, bilateral TKR, tubal ligation Tobacco: Denies EtOH: Denies Illicits: Daily THC Past History - Past Medical History Allergies/Adverse Reactions: Allergies Allergy/AdvReac Type Severity Reaction Status Date / Time No Known Allergies Allergy Verified 03/17/17 21:56 Home Medications: Ambulatory Orders Sertraline HCl [Zoloft -] 100 mg PO BID 03/21/16 Anemia: No Asthma: No Cancer: No Cardiac Disorders: No CVA: No COPD: No CHF: No Dementia: No Diabetes: No GI Disorders: No Disorders: No HTN: Yes Hypercholesterolemia: No Liver Disease: No Psychiatric Problems: Yes (depression ) Seizures: Yes (no medication) Thyroid Disease: No Lung CA: Yes - Surgical History Abdominal Surgery: No Appendectomy: No Cardiac Surgery: No Cholecystectomy: No Lung Surgery: No Neurologic Surgery: No Orthopedic Surgery: Yes (LEFT TOTAL KNEE REPLACEMENT 2013) - Suicide/Smoking/Psychosocial Hx Smoking Status: No Smoking History: Never smoked (smokes marijuana (2 JOINTS/DAY)) Years of Tobacco Use: 0 Have you smoked in the past 12 months: No Number of Cigarettes Smoked Daily: 0 'Breaking Loose' booklet given: 08/31/13 Hx Alcohol Use: No Drug/Substance Use Hx: Yes (SMOKES 2 JOINTS/DAY) Substance Use Type: Marijuana Hx Substance Use Treatment: No Cardiac Specific PMH - Complaint Specific PMHX Pacemaker: No Review of Systems - Review of Systems Able to Perform ROS?: Yes Is the patient limited Khmer proficient: No Constitutional: No: Symptoms Reported HEENTM: No: Symptoms Reported Respiratory: Yes: See HPI Cardiac (ROS): Yes: See HPI ABD/GI: No: Symptoms Reported : No: Symptoms Reported Musculoskeletal: No: Symptoms Reported Integumentary: No: Symptoms Reported Neurological: Yes: See HPI Endocrine: No: Symptoms Reported Hematologic/Lymphatic: No: Symptoms Reported *Physical Exam - Vital Signs Last Vital Signs Temp Pulse Resp BP Pulse Ox 97.7 F 69 18 131/71 96 03/17/17 21:53 03/17/17 21:53 03/17/17 21:53 03/17/17 21:53 03/17/17 21:53 - Physical Exam General Appearance: Yes: Appropriately Dressed. No: Apparent Distress HEENT: positive: Normal ENT Inspection Neck: positive: Trachea midline, Supple Respiratory/Chest: positive: Lungs Clear, Normal Breath Sounds. negative: Chest Tender, Respiratory Distress, Accessory Muscle Use Cardiovascular: positive: Regular Rhythm, Regular Rate, S1, S2. negative: Edema , Murmur Gastrointestinal/Abdominal: positive: Normal Bowel Sounds, Soft. negative: Tender Musculoskeletal: positive: Normal Inspection. negative: CVA Tenderness Extremity: positive: Normal Capillary Refill, Normal Inspection Integumentary: positive: Normal Color, Dry, Warm Neurologic: positive: fast food cook II-XII NML intact, Fully Oriented, Alert, Normal Mood/ Affect, Normal Response, Motor Strength 5/5 Heart Score/ECG Review - History History: Slightly suspicious - Electrocardiogram EKG: Normal - Age Age: >/= 65 - Risk Factors Risk Factors Heart Score: No Hx Hypercholesterolemia, No Hx Hypertension, No Hx Diabetes, No Smoking History, No Positive family hx of cardiac disease, No Hx Obesity Based on the list above the patient has:: No risk factors known - Troponin Troponin: </= normal limit - Score Heart Score - Total: 2 - ECG Intrepretation Rhythm: Regular Rhythm - [place]: Normal - ECG Impressions Normal ECG: Yes ED Treatment Course - LABORATORY CBC & Chemistry Diagram: 03/17/17 22:20 03/18/17 00:46 - ADDITIONAL ORDERS Additional order review: Laboratory Results 03/18/17 03/18/17 03/17/17 00:46 00:46 22:20 PT with INR INR Sodium 144 Cancelled Potassium 4.1 Cancelled Chloride 108 H Cancelled Carbon Dioxide 31 Cancelled Anion Gap 5 L Cancelled BUN 23 H Cancelled Creatinine 0.6 Cancelled Creat Clearance w eGFR > 60 Cancelled Random Glucose 91 Cancelled Calcium 8.5 Cancelled Magnesium Cancelled Total Bilirubin 0.2 D Cancelled AST 11 L Cancelled ALT 18 Cancelled Alkaline Phosphatase 69 Cancelled Creatine Kinase 72 Cancelled Troponin I < 0.02 Cancelled Total Protein 6.5 Cancelled Albumin 3.5 Cancelled 03/17/17 22:20 PT with INR 10.50 INR 0.93 Sodium Potassium Chloride Carbon Dioxide Anion Gap BUN Creatinine Creat Clearance w eGFR Random Glucose Calcium Magnesium Total Bilirubin AST ALT Alkaline Phosphatase Creatine Kinase Troponin I Total Protein Albumin 03/17/17 21:29 Influenza Types A,B Antigen (DONITA) - Final Nasopharyngeal Swab - Final 03/17/17 22:20 RBC 4.67 MCV 88.0 MCHC 32.9 RDW 15.3 MPV 8.2 Neutrophils % 50.2 Lymphocytes % 34.5 D Monocytes % 10.7 H Eosinophils % 3.2 Basophils % 1.4 - RADIOLOGY Radiology Studies Ordered: Category Date Time Status HEAD CT WITHOUT CONTRAST [CT] Stat CT Scan 03/17/17 21:26 Taken - Medications Given in the ED: ED Medications Discontinued Medications Generic Name Dose Route Start Last Admin Trade Name Freq PRN Reason Stop Dose Admin Sodium Chloride 1,000 mls @ 1,000 mls/hr 03/17/17 21:25 03/17/17 22:05 Normal Saline - IV 03/17/17 22:24 1,000 mls/hr ASDIR STA Administration Medical Decision Making - Medical Decision Making 03/17/17 21:37 A/P: This is a 71-year-old woman with past medical history of depression, seizures, SBO, anemia, splenectomy who presents to the emergency department today after she "passed out" for approximately 20 seconds while brushing her teeth today. Patient states she was in her bathroom performing her usual nightly hygiene when she began to feel dizzy and the next thing she remembers, she was on the floor. witnessed the event and denies any shaking or seizure-like activity. Patient described dizziness as lightheadedness. No association with motion reported. Prior to this episode, patient has been experiencing 1 week of productive cough with yellow sputum, sore throat, weakness. Patient was evaluated by her primary doctor who prescribed her a Z-Baldev with minimal relief of symptoms. Of note, patient smoked her usual daily THC at 3 PM. Patient does report some diffuse chest pain which worsens with deep breathing and coughing. She denies fevers, chills, headaches, dizziness, shortness of breath, abdominal pain, nausea, vomiting, diarrhea. Oropharynx clear without erythema or exudates. No tenderness to palpation over sinuses. No cervical lymphadenopathy present. Respirations even and unlabored. Speaking full sentences. Lungs clear to auscultation bilaterally. RRR. S1 and S2 present. No murmur, rub or gallop noted. Abdomen soft nontender nondistended. No peripheral edema is noted. Cranial nerves II through XII grossly intact. Strength 5 out of 5 in bilateral upper and lower extremities. Differential diagnoses include syncope, influenza, ACS, intracranial pathology, seizure, pneumonia, urinary tract infection I'll obtain chest x-ray, EKG, influenza testing, CBC, CMP, coagulation, cardiac profile, urinalysis, CTH. 03/18/17 00:59 CT of the head as read by Dr. Tucker: Brain parenchyma is normal in attenuation with no mass or hematoma. There is no midline shift. Handy and white matter differentiation is normal. Ventricles are normal. Sulci and extra-axial CSF spaces are normal. Intracranial vascular structures are normal in attenuation. There is no calvarial fracture. Paranasal sinuses are normally aerated. Impression: Normal head CT. Wet read of chest x-ray by me: Angles intact. No pulmonary consolidations or infiltrates noted. Cardiac silhouette was within normal limits. Visualized osseous structures intact. 03/18/17 01:36 Labs notable for azotemia with normal cardiac profile. I'll contact the hospitalist service for admission. 03/18/17 01:45 Case d/w MD Hitchcock who accepts patient for admission. *DC/Admit/Observation/Transfer Diagnosis at time of Disposition: Syncope Qualifiers: Syncope type: unspecified Qualified Code(s): R55 - Syncope and collapse - Discharge Dispostion Condition at time of disposition: Guarded Admit: Yes - Referrals Referrals: Catracho Nichole MD [Primary Care Provider] - - Patient Instructions - Post Discharge Activity
[2017-03-17 21:55] VITALS: BMI 22.8
[2017-03-17 22:31] LABS: BASO % 1.4 % (0-2.0); EOS % 3.2 % (0-4.5); HEMATOCRIT 41.1 % (32.4-45.2); HEMOGLOBIN 13.5 GM/dL (10.7-15.3); LYMPH % 34.5 % (8-40); MCH 28.9 pg (25.7-33.7); MCHC 32.9 g/dl (32.0-36.0); MEAN PLT VOLUME 8.2 fl (7.5-11.1); MONO % 10.7 % (3.8-10.2); NEUT % 50.2 % (42.8-82.8); PLATELET COUNT 341 K/MM3 (134-434); RBC 4.67 M/mm3 (3.60-5.2); RDW 15.3 % (11.6-15.6); WHITE BLOOD COUNT 9.2 K/mm3 (4.0-10.0)
[2017-03-17 22:58] LABS: INR 0.93 (0.82-1.09); PROTHROMBIN TIME (PATIENT) 10.5 SEC (9.98-11.88)
[2017-03-18 01:25] LABS: ALBUMIN 3.5 g/dl (3.4-5.0); ALK PHOS 69 U/L (45-117); ANION GAP 5 (8-16); BILIRUBIN,TOTAL 0.2 mg/dL (0.2-1.0); BLOOD UREA NITROGEN 23 mg/dL (7-18); CALCIUM 8.5 mg/dL (8.5-10.1); CHLORIDE 108 mmol/L (98-107); CO2 31 mmol/L (21-32); CREATININE 0.6 mg/dL (0.55-1.02); GLUCOSE,RANDOM 91 mg/dL (74-106); POTASSIUM 4.1 mmol/L (3.5-5.1); SGOT/AST 11 U/L (15-37); SGPT/ALT 18 U/L (12-78); SODIUM 144 mmol/L (136-145); TOT PROT 6.5 g/dl (6.4-8.2)
--- NOTE | 2017-03-18 01:46 | PN ---
Teaching Attending Note Name of Resident: Markus Pastor ATTENDING PHYSICIAN STATEMENT I saw and evaluated the patient. I reviewed the resident's note and discussed the case with the resident. I agree with the resident's findings and plan as documented. SUBJECTIVE: 71 F with pmhx. of depression, seizures, splenectomy, tubal ligation, Bilateral total knee replacements who presents with loss of concsiousness. She had brushed her teeth when she felt dizzy and next thing she knew she was on the floor. Her was a witness. He stated he did not see any shaking. she has associated 1 week history of cough with sputum production. She was prescribed a Z-Pack with minimal relief. She has pain with deep breaths and cough. No fevers or chills. No SOB or N/V/D. Did feel lightheaded. No current chest pain, pressure, or dizziness. States she did not bite her tongue or loose bowel/ bladder function. OBJECTIVE: Physical: VS: Vital Signs Period Temp Pulse Resp BP Sys/Truong Pulse Ox Last 24 Hr 97.7 F 69 18 131/71 96 GEN: NAD, resting in bed, AA0X3 HEENT: NCAT, PERRL, Throat without erythema or exudates CARD: RRR S1, S2, mid-systolic click RESP: CTAB ABD: BSX4, NTD to palpation EXT: - C/C/E CBCD WBC 9.2 K/mm3 (4.0-10.0) 03/17/17 22:20 RBC 4.67 M/mm3 (3.60-5.2) 03/17/17 22:20 Hgb 13.5 GM/dL (10.7-15.3) D 03/17/17 22:20 Hct 41.1 % (32.4-45.2) D 03/17/17 22:20 MCV 88.0 fl (80-96) 03/17/17 22:20 MCHC 32.9 g/dl (32.0-36.0) 03/17/17 22:20 RDW 15.3 % (11.6-15.6) 03/17/17 22:20 Plt Count 341 K/MM3 (134-434) 03/17/17 22:20 MPV 8.2 fl (7.5-11.1) 03/17/17 22:20 CMP Sodium 144 mmol/L (136-145) 03/18/17 00:46 Potassium 4.1 mmol/L (3.5-5.1) 03/18/17 00:46 Chloride 108 mmol/L (98-107) H 03/18/17 00:46 Carbon Dioxide 31 mmol/L (21-32) 03/18/17 00:46 Anion Gap 5 (8-16) L 03/18/17 00:46 BUN 23 mg/dL (7-18) H 03/18/17 00:46 Creatinine 0.6 mg/dL (0.55-1.02) 03/18/17 00:46 Creat Clearance w eGFR > 60 (>60) 03/18/17 00:46 Random Glucose 91 mg/dL (74-106) 03/18/17 00:46 Calcium 8.5 mg/dL (8.5-10.1) 03/18/17 00:46 Total Bilirubin 0.2 mg/dL (0.2-1.0) D 03/18/17 00:46 AST 11 U/L (15-37) L 03/18/17 00:46 ALT 18 U/L (12-78) 03/18/17 00:46 Alkaline Phosphatase 69 U/L (45-117) 03/18/17 00:46 Total Protein 6.5 g/dl (6.4-8.2) 03/18/17 00:46 Albumin 3.5 g/dl (3.4-5.0) 03/18/17 00:46 CARDIAC ENZYMES Creatine Kinase 72 IU/L (26-192) 03/18/17 00:46 Troponin I < 0.02 ng/ml (0.00-0.05) 03/18/17 00:46 CXR- Pending EKG: NSR, No acute-St-T changes CT of the head as read by Dr. Tucker: Brain parenchyma is normal in attenuation with no mass or hematoma. There is no midline shift. Handy and white matter differentiation is normal. Ventricles are normal. Sulci and extra-axial CSF spaces are normal. Intracranial vascular structures are normal in attenuation. There is no calvarial fracture. Paranasal sinuses are normally aerated. Impression: Normal head CT. Ambulatory Orders Sertraline HCl [Zoloft -] 100 mg PO BID 03/21/16 ASSESSMENT AND PLAN: 71 F with pmhx. of depression, seizures, splenectomy, tubal ligation, Bilateral total knee replacements who is being admitted for Syncope 1.) Loss of Concioussness - Vasovagal vs. Cardiogenic Syncope - Orthostatic VS - Fu UA - Echo/Carotid US - Trend Trop/EKG - CT HEAD as Above - Cardio 2.) Seizure Hx - Not on AEDs 3.) Dvt Ppx - Low Risk - SCDs Place in Obs- Tele
--- NOTE | 2017-03-18 02:59 | HP ---
CHIEF COMPLAINT: fainting PCP: Dr. Catracho Castaneda ([place]) HISTORY OF PRESENT ILLNESS: Pt is a 71 y/o F who presents to ED after fainting. Pt reports that she was brushing her teeth, suddenly felt dizzy, and lost consciousness. Reportedly, her witnessed the episode and said she was unconscious for about 20 sec. Upon waking, she was not confused. Pt did not lose control of bowel or bladder and did not shake while unconscious. Pt states she did hit her head, but did not have any bleeding or even an abrasion. Pt also reports that she's been having a week of cough productive of yellow sputum, sore throat, and weakness for which she was given a Z-pack that she finished prior to coming to ED. At this time, pt feels well and has no complaints. Denies fever, chills, sob, cp , nausea, vomiting, diarrhea. Pt had an echo in 2016 which was significant for nondiagnostic E/A reversal. Pt also reports loss of 20lbs over the last year and blames decreased appetite. Although, her appetite over the last week has been relatively normal at her baseline. ER course was notable for: (1) labs unremarkable (2) CXR unremarkable, head CT neg (3) Recent Travel: denies PAST MEDICAL HISTORY: depression, SBO, anemia, splenecomy, seizures (pt states that she hasn't had one in years, and when she did, she did not convulse. Her seizers changed her personality to that of a child), PAST SURGICAL HISTORY: Social History: Smoking: denies Alcohol: denies Drugs: marijuana bid Family History: denies Allergies No Known Allergies Allergy (Verified 03/17/17 21:56) HOME MEDICATIONS: Home Medications Medication Instructions Recorded Sertraline HCl [Zoloft -] 100 mg PO BID 03/21/16 REVIEW OF SYSTEMS CONSTITUTIONAL: loss of appetite, weight change Absent: fever, chills, diaphoresis, generalized weakness, malaise, HEENT: nasal congestion, throat pain, Absent: rhinorrhea, throat swelling, difficulty swallowing, mouth swelling, ear pain, eye pain, visual changes CARDIOVASCULAR: lightheadedness Absent: chest pain, syncope, palpitations, irregular heart rate,, peripheral edema RESPIRATORY: cough Absent: , shortness of breath, dyspnea with exertion, orthopnea, wheezing, stridor, hemoptysis GASTROINTESTINAL: Absent: abdominal pain, abdominal distension, nausea, vomiting, diarrhea, constipation, melena, hematochezia GENITOURINARY: Absent: dysuria, frequency, urgency, hesitancy, hematuria, flank pain, genital pain MUSCULOSKELETAL: Absent: myalgia, arthralgia, joint swelling, back pain, neck pain SKIN: Absent: rash, itching, pallor HEMATOLOGIC/IMMUNOLOGIC: Absent: easy bleeding, easy bruising, lymphadenopathy, frequent infections ENDOCRINE: Absent: unexplained weight gain, unexplained weight loss, heat intolerance, cold intolerance NEUROLOGIC: dizziness Absent: headache, focal weakness or paresthesias, , unsteady gait, seizure, mental status changes, bladder or bowel incontinence PSYCHIATRIC: Absent: anxiety, depression, suicidal or homicidal ideation, hallucinations. PHYSICAL EXAMINATION Vital Signs - 24 hr 03/17/17 21:53 Temperature 97.7 F Pulse Rate 69 Respiratory 18 Rate Blood Pressure 131/71 O2 Sat by Pulse 96 Oximetry (%) GENERAL: Awake, alert, and fully oriented, in no acute distress. HEAD: Normal with no signs of trauma. No lesion present EYES: Pupils equal, round and reactive to light, extraocular movements intact, sclera anicteric, conjunctiva clear. No lid lag. EARS, NOSE, THROAT: oropharynx clear without exudates. Moist mucous membranes. NECK: Normal range of motion, supple without lymphadenopathy, JVD, or masses. LUNGS: Breath sounds equal, clear to auscultation bilaterally. No wheezes, and no crackles. No accessory muscle use. HEART: Regular rate and rhythm w/ premature beats, normal S1. Loud S2, ? 2/6 diastolic murmur at LLSB,no rub or gallop. ABDOMEN: Soft, nontender, not distended, normoactive bowel sounds, no guarding, no rebound, no masses. No hepatomegaly or splenomegaly. MUSCULOSKELETAL: Normal range of motion at all joints. No bony deformities or tenderness. No CVA tenderness. UPPER EXTREMITIES: 2+ pulses, warm, well-perfused. No cyanosis. No clubbing. No peripheral edema. LOWER EXTREMITIES: 2+ pulses, warm, well-perfused. No calf tenderness. No peripheral edema. NEUROLOGICAL: Cranial nerves II-XII intact. Normal speech. Normal gait. PSYCHIATRIC: Cooperative. Good eye contact. Appropriate mood and affect. SKIN: Warm, dry, normal turgor, no rashes or lesions noted, normal capillary refill. Laboratory Results - last 24 hr 03/17/17 03/17/17 03/17/17 22:20 22:20 22:20 WBC 9.2 RBC 4.67 Hgb 13.5 D Hct 41.1 D MCV 88.0 MCH 28.9 MCHC 32.9 RDW 15.3 Plt Count 341 MPV 8.2 Neutrophils % 50.2 Lymphocytes % 34.5 D Monocytes % 10.7 H Eosinophils % 3.2 Basophils % 1.4 PT with INR 10.50 INR 0.93 Sodium Cancelled Potassium Cancelled Chloride Cancelled Carbon Dioxide Cancelled Anion Gap Cancelled BUN Cancelled Creatinine Cancelled Creat Clearance w eGFR Cancelled Random Glucose Cancelled Calcium Cancelled Magnesium Cancelled Total Bilirubin Cancelled AST Cancelled ALT Cancelled Alkaline Phosphatase Cancelled Creatine Kinase Cancelled Troponin I Cancelled Total Protein Cancelled Albumin Cancelled 03/18/17 03/18/17 00:46 00:46 WBC RBC Hgb Hct MCV MCH MCHC RDW Plt Count MPV Neutrophils % Lymphocytes % Monocytes % Eosinophils % Basophils % PT with INR INR Sodium 144 Potassium 4.1 Chloride 108 H Carbon Dioxide 31 Anion Gap 5 L BUN 23 H Creatinine 0.6 Creat Clearance w eGFR > 60 Random Glucose 91 Calcium 8.5 Magnesium Total Bilirubin 0.2 D AST 11 L ALT 18 Alkaline Phosphatase 69 Creatine Kinase 72 Troponin I < 0.02 Total Protein 6.5 Albumin 3.5 ASSESSMENT/PLAN: Pt is a 71 y/o F with PMH Seizures and anemia who presents to ED with syncope. #Synocpe -+LOC, with trauma -head CT negative -EKG unremarkable -Orthostatics pending -Labs unreamarkable -Echo -Carotid -f/u Tn -EKG -Cardio Consult #Depression -c/w zoloft #weight loss -20 lbs over the last year. Pt attributes to decreased appetite -will need workup as out pt including mammogram, pap smear, colonoscopy #FEN -NS at 50 -lytes wnl -reg diet #PPx -hep subQ #Dispo -Tele/Obs Markus Pastor MD PGY-1 IM Visit type - Emergency Visit Emergency Visit: Yes ED Registration Date: 03/18/17 Care time: The patient presented to the Emergency Department on the above date and was hospitalized for further evaluation of their emergent condition. - New Patient This patient is new to me today: Yes Date on this admission: 03/18/17 - Critical Care Critical Care patient: No
[2017-03-18] MEDS ORDERED: SODIUM CHLORIDE 1,000 ML IV SCH ×2 (03:15→09:56)
[2017-03-18] MEDS: HEPARIN NA (PORCINE) 5,000 UNITS/ML 1ML VIAL SQ SCH ×2 (06:02→14:30)
[2017-03-18 07:10] VITALS: TEMP 97.8
--- NOTE | 2017-03-18 08:48 | EKG ---
Test Reason : Blood Pressure : / mmHG Vent. Rate : 061 BPM Atrial Rate : 061 BPM P-R Int : 140 ms QRS Dur : 086 ms QT Int : 424 ms P-R-T Axes : 040 001 051 degrees QTc Int : 426 ms NORMAL SINUS RHYTHM NORMAL ECG WHEN COMPARED WITH ECG OF 17-JAN-2016 08:39, PREMATURE VENTRICULAR COMPLEXES ARE NO LONGER PRESENT VENT. RATE HAS DECREASED BY 35 BPM Confirmed by Brennan Moore ([id number]) on 03/18/2017 8:47:46 AM Referred By: Confirmed By:Brennan Moore
[2017-03-18] MEDS ORDERED: SERTRALINE HCL 50 MG TABLET (FP) PO SCH (10:00)
--- NOTE | 2017-03-18 10:24 | CON.CARD ---
Consult Consult Specialty:: Cardiology Referred by:: Hospitalist Medicine Reason for Consultation:: Syncope - History of Present Illness Chief Complaint: Syncope History of Present Illness: 71 F with pmhx. of depression, seizure d/o, splenectomy, tubal ligation, Bilateral total knee replacements who presents with loss of consciousness. She reports flu like syndrome over weekend including myalgias, malaise, cough, rhinorrhea, was brushing her teeth when she felt dizzy and next thing she knew she was on the floor. Her was a witness. He stated he did not see any shaking. she has associated 1 week history of cough with sputum production. She was prescribed a Z-Pack with minimal relief. She has pain with deep breaths and cough. No fevers or chills. No SOB or N/V/D. Did feel lightheaded especially with positional changes. No current chest pain, pressure, palpitations, or dizziness. States she did not bite her tongue or loose bowel/bladder function, feels improved post hydration. - History Source History Provided By: Patient Limitations to Obtaining History: No Limitations - Past Medical History Gastrointestinal: Yes: Other (Ruptured spleen) Psych: Yes: Anxiety Musculoskeletal: Yes: Other (knee pain, post TKR) - Past Surgical History Past Surgical History: Yes: Joint Replacement, Splenectomy (Grade 4 splenic injury) - Alcohol/Substance Use Hx Alcohol Use: No History of Substance Use: reports: Marijuana - Smoking History Smoking history: Never smoked Have you smoked in the past 12 months: No Aproximately how many cigarettes per day: 0 Home Medications - Allergies Allergies/Adverse Reactions: Allergies Allergy/AdvReac Type Severity Reaction Status Date / Time No Known Allergies Allergy Verified 03/17/17 21:56 - Home Medications Home Medications: Ambulatory Orders Sertraline HCl [Zoloft -] 100 mg PO BID 03/21/16 Review of Systems - Review of Systems Neurological: reports: Dizziness, Syncope Vital Signs: Vital Signs Temperature 97.8 F 03/18/17 07:09 Pulse Rate 60 03/18/17 09:21 Respiratory Rate 18 03/18/17 09:21 Blood Pressure 142/68 03/18/17 09:21 O2 Sat by Pulse Oximetry (%) 99 03/18/17 09:21 Constitutional: Yes: No Distress, Calm Neck: Yes: Supple Respiratory: Yes: Regular, CTA Bilaterally Gastrointestinal: Yes: Normal Bowel Sounds, Soft Cardiovascular: Yes: Regular Rate and Rhythm JVD: No Carotid Bruit: No Heart Sounds: Yes: S1, S2 Edema: No - Other Data Labs, Other Data: CBC, BMP 03/17/17 22:20 03/18/17 00:46 INR, PTT INR 0.93 (0.82-1.09) 03/17/17 22:20 Troponin, BNP 03/17/17 03/18/17 03/18/17 22:20 00:46 06:35 Troponin I Cancelled < 0.02 < 0.02 Troponin, BNP 03/17/17 03/18/17 03/18/17 22:20 00:46 06:35 Troponin I Cancelled < 0.02 < 0.02 NSR @ 61 Imaging - Results Chest X-ray: Report Reviewed (NAD) Cat Scan: Report Reviewed (HCT: No acute changes) Ultrasound: Report Reviewed (No sig stenosis) Problem List - Problems (1) Depression Code(s): F32.9 - MAJOR DEPRESSIVE DISORDER, SINGLE EPISODE, UNSPECIFIED Qualifiers: Depression Type: unspecified Qualified Code(s): F32.9 - Major depressive disorder, single episode, unspecified (2) Seizure disorder Code(s): G40.909 - EPILEPSY, UNSP, NOT INTRACTABLE, WITHOUT STATUS EPILEPTICUS (3) Syncope Code(s): R55 - SYNCOPE AND COLLAPSE Qualifiers: Syncope type: vasovagal syncope Qualified Code(s): R55 - Syncope and collapse Assessment/Plan 1. Vasovagal syncope 2. Seizure d/o 3. Depression P:1. Check orthostasis 2. Encourage hydration and abortive maneuvers once prodromal sxs have been experienced 3. F/u echocardiogram results 4. May d/c home from CV standpoint with f/u in office [phone] 5. Thank you for consultative opportunity
--- NOTE | 2017-03-18 16:36 | DS ---
Physical Exam: SUBJECTIVE: Patient seen and examined at bedside. Patient states that she has been coughing for 1 week with body aches and chills. She states that vigorous coughing makes her chest hurt. Currently denies chest pain, shortness of breath , nausea, vomiting, or diarrhea. Patient states that she did not have a seizure when she syncopized. She recalls the entire event and states that she felt lightheaded before falling. OBJECTIVE: Vital Signs Period Temp Pulse Resp BP Sys/Truong Pulse Ox Last 24 Hr 97.7 F-97.8 F 58-69 18-28 129-146/59-79 96-99 PHYSICAL EXAM GENERAL: The patient is awake, alert, and fully oriented, in no acute distress. HEAD: Normal with no signs of trauma. EYES: PERRL, extraocular movements intact, sclera anicteric, conjunctiva clear. ENT: Ears normal, nares patent, oropharynx mildly erythematous, moist mucous membranes. NECK: Trachea midline, full range of motion, supple. LUNGS: Breath sounds equal, clear to auscultation bilaterally, no wheezes, no crackles, no accessory muscle use. HEART: Regular rate and rhythm, S1, S2 without murmur, rub or gallop. ABDOMEN: Soft, nontender, nondistended, normoactive bowel sounds, no guarding, no rebound, no hepatosplenomegaly, no masses. EXTREMITIES: 2+ pulses, warm, well-perfused, no edema. NEUROLOGICAL: Cranial nerves II through XII grossly intact. Normal speech, gait not observed. PSYCH: Normal mood, normal affect. SKIN: Warm, dry, normal turgor, no rashes or lesions noted. LABS Laboratory Results - last 24 hr 03/17/17 03/17/17 03/17/17 22:20 22:20 22:20 WBC 9.2 RBC 4.67 Hgb 13.5 D Hct 41.1 D MCV 88.0 MCH 28.9 MCHC 32.9 RDW 15.3 Plt Count 341 MPV 8.2 Neutrophils % 50.2 Lymphocytes % 34.5 D Monocytes % 10.7 H Eosinophils % 3.2 Basophils % 1.4 PT with INR 10.50 INR 0.93 Sodium Cancelled Potassium Cancelled Chloride Cancelled Carbon Dioxide Cancelled Anion Gap Cancelled BUN Cancelled Creatinine Cancelled Creat Clearance w eGFR Cancelled Random Glucose Cancelled Calcium Cancelled Magnesium Cancelled Total Bilirubin Cancelled AST Cancelled ALT Cancelled Alkaline Phosphatase Cancelled Creatine Kinase Cancelled Troponin I Cancelled Total Protein Cancelled Albumin Cancelled Vitamin B12 Serum Folate TSH 03/18/17 03/18/17 03/18/17 00:46 00:46 06:35 WBC RBC Hgb Hct MCV MCH MCHC RDW Plt Count MPV Neutrophils % Lymphocytes % Monocytes % Eosinophils % Basophils % PT with INR INR Sodium 144 Potassium 4.1 Chloride 108 H Carbon Dioxide 31 Anion Gap 5 L BUN 23 H Creatinine 0.6 Creat Clearance w eGFR > 60 Random Glucose 91 Calcium 8.5 Magnesium Total Bilirubin 0.2 D AST 11 L ALT 18 Alkaline Phosphatase 69 Creatine Kinase 72 Troponin I < 0.02 < 0.02 Total Protein 6.5 Albumin 3.5 Vitamin B12 409 Serum Folate 14 TSH 2.73 03/18/17 03/18/17 03/18/17 10:00 10:00 13:00 WBC RBC Hgb Hct MCV MCH MCHC RDW Plt Count MPV Neutrophils % Lymphocytes % Monocytes % Eosinophils % Basophils % PT with INR INR Sodium Potassium Chloride Carbon Dioxide Anion Gap BUN Creatinine Creat Clearance w eGFR Random Glucose Calcium Magnesium Total Bilirubin AST ALT Alkaline Phosphatase Creatine Kinase Troponin I < 0.02 Total Protein Albumin Vitamin B12 Cancelled Serum Folate Cancelled TSH Cancelled HOSPITAL COURSE: Date of Admission:03/18/17 71 year old female with a past medical history of splenectomy, depression and anxiety presented to the hospital after syncopal episode during brushing her teeth. She had been ill with cough, body aches, and chills for about 1 week, and patient did not lose conciousness after syncopizing. In the ED, CT of the head was negative for any intracranial pathology. Patient was given an echocardiogram and a carotid doppler. Patient was treated with 100cc NS/hr due to her dehydrated status. Patient felt improved after several hours. CBC/BMP and dopplers returned negative. Echo showed mild pulmonary hypertension. Patient was discharged on the same day with instructions to obtain adequate hydration and to follow with her PCP as well as Dr. Jerome in cardiology. She was prescribed Tamiflu to take for 5 days. Date of Discharge: 03/18/17 Minutes to complete discharge: 35 <Vadim Haro - Last Filed: 03/18/17 16:39> Physical Exam: SUBJECTIVE: Patient seen and examined with the resident. Patient is c/o having cold symptoms, with muscle ache , congestion, cough , generalized weakness. Flu swab was done and was negative. Even though the swab was negative, patient has symptoms of flu, will discharge patient home on Tamiflu for 5 days. Vital Signs Temperature 97.8 F 03/18/17 07:09 Pulse Rate 61 03/18/17 16:42 Respiratory Rate 18 03/18/17 16:42 Blood Pressure 130/76 03/18/17 16:42 O2 Sat by Pulse Oximetry (%) 99 03/18/17 16:42 CBCD WBC 9.2 K/mm3 (4.0-10.0) 03/17/17 22:20 RBC 4.67 M/mm3 (3.60-5.2) 03/17/17 22:20 Hgb 13.5 GM/dL (10.7-15.3) D 03/17/17 22:20 Hct 41.1 % (32.4-45.2) D 03/17/17 22:20 MCV 88.0 fl (80-96) 03/17/17 22:20 MCHC 32.9 g/dl (32.0-36.0) 03/17/17 22:20 RDW 15.3 % (11.6-15.6) 03/17/17 22:20 Plt Count 341 K/MM3 (134-434) 03/17/17 22:20 MPV 8.2 fl (7.5-11.1) 03/17/17 22:20 CMP Sodium 144 mmol/L (136-145) 03/18/17 00:46 Potassium 4.1 mmol/L (3.5-5.1) 03/18/17 00:46 Chloride 108 mmol/L (98-107) H 03/18/17 00:46 Carbon Dioxide 31 mmol/L (21-32) 03/18/17 00:46 Anion Gap 5 (8-16) L 03/18/17 00:46 BUN 23 mg/dL (7-18) H 03/18/17 00:46 Creatinine 0.6 mg/dL (0.55-1.02) 03/18/17 00:46 Creat Clearance w eGFR > 60 (>60) 03/18/17 00:46 Random Glucose 91 mg/dL (74-106) 03/18/17 00:46 Calcium 8.5 mg/dL (8.5-10.1) 03/18/17 00:46 Total Bilirubin 0.2 mg/dL (0.2-1.0) D 03/18/17 00:46 AST 11 U/L (15-37) L 03/18/17 00:46 ALT 18 U/L (12-78) 03/18/17 00:46 Alkaline Phosphatase 69 U/L (45-117) 03/18/17 00:46 Total Protein 6.5 g/dl (6.4-8.2) 03/18/17 00:46 Albumin 3.5 g/dl (3.4-5.0) 03/18/17 00:46 CARDIAC ENZYMES Creatine Kinase 72 IU/L (26-192) 03/18/17 00:46 Troponin I < 0.02 ng/ml (0.00-0.05) 03/18/17 13:00 Current Medications Generic Name Dose Route Start Last Admin Trade Name Travisq PRN Reason Stop Dose Admin Heparin Sodium (Porcine) 5,000 unit 03/18/17 06:00 03/18/17 14:30 Heparin - SQ 5,000 unit TID LISHA Administration Sodium Chloride 1,000 mls @ 100 mls/hr 03/18/17 09:56 03/18/17 11:00 Normal Saline - IV 03/19/17 03:09 100 mls/hr ASDIR LISHA Administration Sertraline HCl 100 mg 03/18/17 10:00 03/18/17 11:00 Zoloft - PO 100 mg BID LISHA Administration Home Medications Medication Instructions Recorded Sertraline HCl [Zoloft -] 100 mg PO BID 03/21/16 Oseltamivir Phosphate [Tamiflu] 75 mg PO BID #10 capsule 03/18/17 <Nerissa Monique - Last Filed: 03/18/17 19:12> Discharge Summary Reason For Visit: SYNCOPE Current Active Problems Depression (Acute) Seizure disorder (Acute) Syncope (Acute) - Home Medications Comprehensive Discharge Medication List: Ambulatory Orders Sertraline HCl [Zoloft -] 100 mg PO BID 03/21/16 Oseltamivir Phosphate [Tamiflu] 75 mg PO BID #10 capsule 03/18/17 <Vadim Haro - Last Filed: 03/18/17 16:39> Current Active Problems Depression (Acute) Seizure disorder (Acute) Syncope (Acute) - Home Medications Comprehensive Discharge Medication List: Ambulatory Orders Sertraline HCl [Zoloft -] 100 mg PO BID 03/21/16 Oseltamivir Phosphate [Tamiflu] 75 mg PO BID #10 capsule 03/18/17 <Nerissa Monique - Last Filed: 03/18/17 19:12> Condition: Stable - Instructions Diet, Activity, Other Instructions: You were admitted to the hospital for the treatment of syncope. You may have passed out due to dehydration. Your ultrasound of the carotid arteries did not show any decreases to blood flow You had an echocardiogram performed in the hospital, we will call you if there are any abnormalities Your clinical picture also suggests you may have the flu, even if the flu test was negative. Medical Recommendations: #Please take Tamiflu for 5 days, we will prescribe it for you - pick it up at the pharmacy as soon as you are able to #Take your time when standing up, if you feel lightheaded, please sit down #Make sure to stay adequately hydrated by drinking plenty of water, 8-10 glasses a day to avoid dehydration and risk of passing out Referrals: #Please make an appointment to see Dr. Jerome (cardiology) within 1 month of discharge; His office number is [phone] #Please make an appointment with your primary care physician within 1 week of discharge If you experience severe fevers, chills, nausea or vomiting, chest pain or severe shortness of breath, please return to the hospital emergency room immediately. Referrals: Catracho Nichole MD [Primary Care Provider] - Jason Jerome MD [Staff Physician] - Disposition: HOME This patient is new to me today: Yes Date on this admission: 03/18/17 Emergency Visit: Yes ED Registration Date: 03/18/17 Care time: The patient presented to the Emergency Department on the above date and was hospitalized for further evaluation of their emergent condition. Critical Care patient: No - Discharge Referral Referred to [facility] No <Vadim Haro - Last Filed: 03/18/17 16:39>
[2017-03-18 16:47] VITALS: BP 130/76; PULSE 61
== END 2017-03-18 16:48 | disposition home or self-care (01) ==
LOC: JER 20:53 → JERBED 03-18 01:46
PROVIDERS: ADMIT Internal Medicine; ATTEND Internal Medicine
PROC: 3E0337Z Introduction of Electrolytic and Water Balance Substance into Peripheral Vein, Percutaneous Approach (ICD-10-PCS; principal; 2017-03-18)
PROC: 3E013GC Introduction of Other Therapeutic Substance into Subcutaneous Tissue, Percutaneous Approach (ICD-10-PCS; 2017-03-18)
DX: R55 Syncope and collapse (principal); I11.0 Hypertensive heart disease with heart failure; F32.9 Major depressive disorder, single episode, unspecified; G40.909 Epilepsy, unspecified, not intractable, without status epilepticus; Z85.118 Personal history of other malignant neoplasm of bronchus and lung; Z96.653 Presence of artificial knee joint, bilateral
CPT/HCPCS: 36415; 70450-TC; 71046-TC; 80053; 82550; 82607; 82746; 84443; 84484; 85025; 85610; 87804; 93005; 93010; 93306-TC; 93880-TC; 99283-25; G0378; J1644

== ENCOUNTER 2018-02-05 08:47 | Emergency (ER) | payer BC ==
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
[2018-02-05 09:42] VITALS: TEMP 97.7; BMI 22.8
[2018-02-05 10:15] LABS: BASO % 0.7 % (0-2.0); EOS % 2.7 % (0-4.5); HEMOGLOBIN 13.3 GM/dL (10.7-15.3); LYMPH % 38.9 % (8-40); MCH 28.8 pg (25.7-33.7); MCHC 31.7 g/dl (32.0-36.0); MEAN CELL VOLUME 90.7 fl (80-96); MEAN PLT VOLUME 8.7 fl (7.5-11.1); MONO % 10.8 % (3.8-10.2); NEUT % 46.9 % (42.8-82.8); PLATELET COUNT 401 K/MM3 (134-434); RBC 4.64 M/mm3 (3.60-5.2); RDW 14.7 % (11.6-15.6); WHITE BLOOD COUNT 7.6 K/mm3 (4.0-10.0)
[2018-02-05 10:33] LABS: ALBUMIN 4.1 g/dl (3.4-5.0); ALK PHOS 78 U/L (45-117); ANION GAP 7 MMOL/L (8-16); BILIRUBIN,TOTAL 0.3 mg/dL (0.2-1); BLOOD UREA NITROGEN 15 mg/dL (7-18); CHLORIDE 106 mmol/L (98-107); CO2 26 mmol/L (21-32); CREATININE 0.5 mg/dL (0.55-1.3); GLUCOSE,RANDOM 87 mg/dL (74-106); POTASSIUM 4.9 mmol/L (3.5-5.1); SGOT/AST 23 U/L (15-37); SGPT/ALT 19 U/L (13-61); SODIUM 140 mmol/L (136-145); TOT PROT 7.5 g/dl (6.4-8.2)
[2018-02-05 12:45] VITALS: BP 148/58; PULSE 72
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
== END 2018-02-05 12:46 | disposition home or self-care (01) ==
LOC: JER 08:47
DX: R56.9 Unspecified convulsions (principal); V43.62XA Car passenger injured in collision with other type car in traffic accident, initial encounter; Y93.89 Activity, other specified; Y92.410 Unspecified street and highway as the place of occurrence of the external cause; I10 Essential (primary) hypertension; F32.9 Major depressive disorder, single episode, unspecified
CPT/HCPCS: 36415; 70450-TC; 71046-TC-FY; 72125-TC; 73030-TC-RT-FY; 80053; 85025; 93005; 93010; 99281-25